=== PATIENT | male | born 1950 | race Caucasian/White ===

== ENCOUNTER → 2017-01-10 | Outpatient (CLI) | payer MEDICARE, BC ==
[~2017-01-10] MED LIST: CALCIUM 500+D1 EACH PO; CELEBREX200 MG PO; CLARITIN10 MG PO; DULCOLAX10 MG PR; GLUCOSAMINE &1 EAC1 PO; LORTAB 7.5-3251 EACH PO; SENOKOT S1 TAB PO; SOMA-DPS350 MG PO; TYLENOL-DPS650 MG PR; TYLENOL325 MG PO; ULTRAM50 MG PO; XARELTO10 MG PO; ZESTRIL10 MG PO
== END | disposition home or self-care (01) ==
LOC: RAD.S 11:30
DX: M79.605 Pain in left leg (principal); M79.89 Other specified soft tissue disorders